=== PATIENT | female | born 1975 ===

== ENCOUNTER 2017-01-02 16:02 | Emergency (ER) | payer SELFPAY ==
[2017-01-02 16:12] VITALS: RESP 16; TEMP 98.1
--- NOTE | 2017-01-02 16:44 | C.PDOC ---
History Of Present Illness 41-year-old female, presents to the emergency department with complaints of dizziness, that started at 11:00 this morning. Dizziness is described as "room spinning" that is associated with a generalized headache, nausea and several episodes of non-bloody/non-bilious vomiting. Patient also notes discomfort when she pees. Denies chest pain, shortness of breath, abdominal pain, numbness/ weakness, visual changes, LOC, fevers, vaginal bleeding/vaginal discharge, or any other associated symptoms. Patient states she has sick contact (sister) at home with sore throat and body aches. No other complaints at this time. Time Seen by Provider: 01/02/17 16:30 Chief Complaint (Nursing): Dizziness/Lightheaded History Per: Patient History/Exam Limitations: no limitations Onset/Duration Of Symptoms: Hrs Current Symptoms Are (Timing): Still Present Associated Symptoms Preceding Syncopal Episode: Vertigo Worse With Change In Head Position Fall Associated With With Symptoms: No Past Medical History Reviewed: Historical Data, Nursing Documentation, Vital Signs Vital Signs: Last Vital Signs Temp 98.1 F 01/02/17 18:04 Pulse 76 01/02/17 18:04 Resp 16 01/02/17 18:04 BP 96/55 L 01/02/17 18:04 Pulse Ox 96 01/02/17 18:15 Family History: States: No Known Family Hx Review Of Systems Except As Marked, All Systems Reviewed And Found Negative. Gastrointestinal: Positive for: Nausea, Vomiting Genitourinary: Positive for: Dysuria Neurological: Positive for: Headache, Dizziness. Negative for: Weakness, Numbness Physical Exam - Physical Exam Appears: Non-toxic, No Acute Distress (Uncomfortable) Skin: Warm, Dry, No Rash Head: Atraumatic, Normacephalic, Other (dizziness worsens with movement.) Eye(s): bilateral: Normal Inspection, PERRL, EOMI, Other (No nystagmus) Oral Mucosa: Moist Neck: Normal ROM Cardiovascular: Rhythm Regular, No Murmur Respiratory: Normal Breath Sounds, No Accessory Muscle Use Gastrointestinal/Abdominal: Soft, No Tenderness Extremity: Normal ROM Neurological/Psych: Oriented x3, Normal Speech, Normal Cognition, Normal Cranial Nerves (II-XII intact), Normal Motor, Normal Sensation, Normal Reflexes , Other (No focal deficits.) ED Course And Treatment - Laboratory Results Result Diagrams: 01/02/17 16:51 01/02/17 16:51 ECG: Interpreted By Me, Viewed By Me (NSR 82 bpm, normal axis, no acute ST/T wave changes) ECG Interpretation: No Acute Changes O2 Sat by Pulse Oximetry: 96 (RA) Pulse Ox Interpretation: Normal - CT Scan/US CT - Head Other Rad Studies (CT/US): Read By Radiologist, Radiology Report Reviewed CT/US Interpretation: EXAM: CT Head Without Intravenous Contrast. CLINICAL HISTORY: 41 years old, female; Pain; Headache; Headache not specified; Additional info: R/O bleed. TECHNIQUE: Axial computed tomography images of the head/brain without intravenous contrast. This CT exam. was performed using one or more of the following dose reduction techniques: automated exposure. control, adjustment of the mA and/or kV according to patient size, and/or use of iterative. reconstruction technique. COMPARISON: No relevant prior studies available. FINDINGS: Brain: Unremarkable. No hemorrhage. No significant white matter disease. No edema. Normal. chaparro white matter interfaces are present. Ventricles: Unremarkable. No ventriculomegaly. Bones/ joints: Unremarkable. No acute fracture. Soft tissues: Unremarkable. Sinuses: Unremarkable as visualized. No acute sinusitis. Mastoid air cells: Unremarkable as visualized. No mastoid effusion. IMPRESSION: Normal head/ brain CT. Thank you for allowing us to participate in the care of your patient. Dictated and Authenticated by: Berhane Peña MD. 01/02/2017 5:18 PM Eastern Time ([place] & [place]) Progress Note: CT Head, EKG, Bloodwork, Urine and UHCG ordered and reviewed. Patient treated with PO Meclizine, IVFs and IV Zofran. Disposition Counseled Patient/Family Regarding: Studies Performed, Diagnosis, Need For Followup, Rx Given - Disposition Referrals: Rickie Knox MD [Staff Provider] - Magdaleno Adkins MD [Staff Provider] - Disposition: HOME/ ROUTINE Disposition Time: 18:25 Condition: STABLE Additional Instructions: SEGUIMIENTO CON COSTA DOCTOR / CLNICA EN 1-2 LOBO Y CON ESPECIALISTAS DENTRO DE 1 SEMANA UTILICE EL MECLIZINE LENO SE NECESITA PARA EL MAREO BEBER MUCHO LQUIDO DEVUELVA A LA COY DE EMERGENCIA SI LOS SINTOMAS VUELVEN / EMPEORARAN Prescriptions: Meclizine [Meclizine*] 25 mg PO Q6 #15 tab Instructions: Benign Paroxysmal Positional Vertigo (ED) Print Language: CHILEAN - POA Present On Arrival: None - Clinical Impression Clinical Impression: Peripheral vertigo, Headache, Nausea - Scribe Statement Erasmo Meeks All medical record entries made by the Scribe were at my direction and personally dictated by me. I have reviewed the chart and agree that the record accurately reflects my personal performance of the history, physical exam, medical decision making, and the department course for this patient. I have also personally directed, reviewed, and agree with the discharge instructions and disposition.
[2017-01-02] MEDS ORDERED: Sodium Chloride 0.9% 1,000 ML IV ONE (16:45)
[2017-01-02] MEDS ORDERED: Sodium Chloride 0.9% 1,000 ML ONE (16:52)
[2017-01-02 16:55] LABS: BASO % 0.3 % (0.0-2.0); EOS % 0.3 % (0.0-4.0); HEMATOCRIT 37.6 % (34.0-47.0); LYMPH # 2.6 K/uL (1.0-4.3); MEAN CELL VOLUME 87.4 fL (81.0-99.0); MEAN CORPUSCULAR HGB CONC 33.2 g/dL (33.0-37.0); MEAN PLATELET VOLUME 9.9 fL (7.2-11.7); MONO # 0.7 K/uL (0.0-0.8); MONO % 6.8 % (0.0-10.0); NRBC % 0.1 % (0.0-2.0); RED CELL DISTRIBUTION WIDTH 13.2 % (11.5-14.5); WHITE BLOOD COUNT 10.4 K/uL (4.8-10.8)
[2017-01-02 17:06] LABS: CHLORIDE 104 mmol/L (98-107); POTASSIUM 4.3 mmol/L (3.6-5.2); SODIUM 141 mmol/L (132-148)
[2017-01-02 17:08] LABS: ALKALINE PHOSPHATASE 103 U/L (38-126); AST/SGOT 29 U/L (14-36); BILIRUBIN,TOTAL 0.6 mg/dL (0.2-1.3); BLOOD UREA NITROGEN 11 mg/dL (7-17); CARBON DIOXIDE 26 mmol/L (22-30); GFR AFRICAN-AMERICAN > 60; TOTAL PROTEIN 8.5 g/dL (6.3-8.3)
[2017-01-02 17:09] LABS: ALT/SGPT 42 U/L (9-52); CALCIUM 9.4 mg/dl (8.6-10.4); GLUCOSE,RANDOM 93 mg/dL (65-105)
[2017-01-02 17:46] LABS: URINE BACTERIA RARE (<OCC); URINE BILIRUBIN NEGATIVE (NEGATIVE); URINE BLOOD NEGATIVE (NEGATIVE); URINE COLOR Straw (YELLOW); URINE GLUCOSE (UA) NORMAL (Normal); URINE KETONE TRACE mg/dL (NEGATIVE); URINE LEUKOCYTE ESTERASE NEG Leu/uL (Negative); URINE PROTEIN NEGATIVE (NEGATIVE); URINE UROBILINOGEN NORMAL mg/dL (0.2-1.0); WBC URINE 1 /hpf (0-5)
[2017-01-02 18:40] VITALS: BP 98/69; PULSE 81; O2SAT 98
--- NOTE | 2017-01-03 08:15 | CT ---
PROCEDURE: CT HEAD WITHOUT CONTRAST. HISTORY: R/O Bleed. Headache. COMPARISON: None available. TECHNIQUE: Axial computed tomography images were obtained through the head/brain without intravenous contrast. Radiation dose: Total exam DLP = 802 mGy-cm. This CT exam was performed using one or more of the following dose reduction techniques: Automated exposure control, adjustment of the mA and/or kV according to patient size, and/or use of iterative reconstruction technique. FINDINGS: HEMORRHAGE: No intracranial hemorrhage. BRAIN: No mass effect or edema. No atrophy or chronic microvascular ischemic changes. Bilateral basal ganglia calcifications. VENTRICLES: Unremarkable. No hydrocephalus. CALVARIUM: Unremarkable. PARANASAL SINUSES: Unremarkable as visualized. No significant inflammatory changes. MASTOID AIR CELLS: Unremarkable as visualized. No inflammatory changes. OTHER FINDINGS: None. IMPRESSION: No acute intracranial abnormality. If focal neurologic deficit persists, consider MRI. These findings were preliminarily reported at 5:18 p.m. on 01/02/[address] Berhane Peña from [facility].
--- NOTE | 2017-01-03 18:29 | CARD ---
APPROVED REPORT EKG Measurement Heart [id number] <Conclusion> Normal sinus rhythm Possible Left atrial enlargement Borderline ECG
== END 2017-01-02 18:45 | disposition home or self-care (01) ==
LOC: C.ER 16:02
DX: H81.399 Other peripheral vertigo, unspecified ear (principal); R51 Headache; R11.0 Nausea
CPT/HCPCS: 70450; 80053; 81001; 83690; 84703; 85025; 93005; 96374; 99285; J2405; J7040

== ENCOUNTER 2018-11-14 15:26 | Inpatient (IN) | payer MEDICAID ==
[2018-11-14] MEDS ORDERED: Lactated Ringer's 1,000 ML IV ONE ×2 (16:28)
[2018-11-14] MEDS ORDERED: cefOXitin IV 2 gm in Dextrose 2 GM/50 ML BAG IVPB ONE (16:28)
[2018-11-14] MEDS ORDERED: Sodium Citrate/Citric Acid 15 ml Sol PO ONE (16:28)
[2018-11-14] MEDS ORDERED: Lactated Ringer's 1,000 ML IV SCH (16:30)
[2018-11-14 16:49] LABS: BASO % 0.4 % (0.0-2.0); EOS % 0.6 % (0.0-4.0); HEMOGLOBIN 11.2 g/dL (11.0-16.0); LYMPH # 2.1 K/uL (1.0-4.3); LYMPH % 28.5 % (20.0-40.0); MEAN CELL VOLUME 85.8 fL (81.0-99.0); MEAN CORPUSCULAR HEMOGLOBIN 28.8 pg (27.0-31.0); MEAN CORPUSCULAR HGB CONC 33.5 g/dL (33.0-37.0); MEAN PLATELET VOLUME 10.6 fL (7.2-11.7); MONO # 0.5 K/uL (0.0-0.8); MONO % 7.3 % (0.0-10.0); NEUT # 4.7 K/uL (1.8-7.0); NEUT % 63.2 % (50.0-75.0); NRBC % 0.1 % (0.0-2.0); RBC 3.91 Mil/uL (3.80-5.20); RED CELL DISTRIBUTION WIDTH 16.6 % (11.5-14.5); WHITE BLOOD COUNT 7.5 K/uL (4.8-10.8)
[2018-11-14 16:56] LABS: SQUAMOUS EPITHIAL 4 /hpf (0-5); URINE BACTERIA FEW (<OCC); URINE BILIRUBIN NEGATIVE (NEGATIVE); URINE BLOOD 3+ (NEGATIVE); URINE CLARITY Hazy (Clear); URINE COLOR Yellow (YELLOW); URINE GLUCOSE (UA) NORMAL (Normal); URINE HYALINE CAST 0-2 /lpf (0-2); URINE LEUKOCYTE ESTERASE NEG Leu/uL (Negative); URINE PROTEIN NEGATIVE (NEGATIVE); URINE UROBILINOGEN NORMAL mg/dL (0.2-1.0)
[2018-11-14 17:18] LABS: ALB/GLOB RATIO 1.2 (1.0-2.1); ALT/SGPT 12 U/L (9-52); AST/SGOT 30 U/L (14-36); BLOOD UREA NITROGEN 9 mg/dL (7-17); CALCIUM 9.3 mg/dl (8.6-10.4); GFR NON-AFRICAN AMERICAN > 60
[2018-11-14] MEDS ORDERED: Oxytocin 20 units in LR 2,000 ML IV ONE (17:49)
[2018-11-14] MEDS ORDERED: Morphine 1 mg/ml preservative-free Inj(Duramorph) ONE (19:43)
[2018-11-14] MEDS ORDERED: EPINEPHrine 1 mg/ml (1:1000) Inj ONE (19:47)
[2018-11-14] MEDS ORDERED: Oxytocin 10 Units/ml Inj ONE (19:52)
[2018-11-14] MEDS ORDERED: ePHEDrine 50 mg/ml Inj ONE (20:30)
[2018-11-14] MEDS ORDERED: Phenylephrine 10 mg/ml Inj ONE (20:30)
--- NOTE | 2018-11-14 22:31 | PCM.SURG1 ---
Surgeon's Initial Post Op Note - Surgeon's Notes Surgeon: Katie Dietz MD Resistor Winder: Wally Hastings MD. 2nd Asst: Cynthia Jauregui, MS-3 Type of Anesthesia: Spinal Anesthesia Administered By: Andre Barragan DO Pre-Operative Diagnosis: 38 weeks 5 days, previous C/S, uterine contractions, vaginal spotting, Advanced maternal age, anemia; desires permanent sterilization Operative Findings: Live male infant, LOP, loose nuchal cord x 1, weight 7lb 5oz, 's 9/9. Cord pH (venous) 7.12, base excess -13.8. Normal uterus. Normal fallopian tubes and ovaries, bilaterally Post-Operative Diagnosis: Same Operation Performed: repeat LTCS. bilateral total salpingectomy Specimen/Specimens Removed: right and left fallopian tubes Estimated Blood Loss: EBL {In ML}: 600 (U.O. 400 mL; IVFs 2,500 mL LR; 40 units pitocin Hemabate 250 micrograms x 1) Blood Products Given: N/A Drains Used: No Drains Post-Op Condition: Good Date of Surgery/Procedure: 11/14/18 Time of Surgery/Procedure: 21:35
--- NOTE | 2018-11-14 23:06 | OBDS ---
DELIVERY PERSONNEL Delivery Doctor: Henna Dietz MD Equipment Maintenance Superintendent: Dee Finney RN Anesthesiologist: Piper Barragan MD Resident: Lisy Jauregui DO MATERNAL INFORMATION Delivery Anesthesia: Spinal Medications in Delivery: pitocin Estimated Blood Loss (ml): 600 Placenta Cultured: No Maternal Complications: None Provider Comments: Repeat LTCS with bialteral total salpingectomy under spinal anesthesia. Uncomplic ated delivery of live male , LOP, loose nuchal cord x 1. Cord pH 7.12 Bialteral salpingectomy perfomred with Ligasure without inident Hemostasis assured throughout Patient tolerated procedure well Weight 7lb 5oz 's 9/9 EBL 60 0mL U.O. 400 mL IVFs: 2,500 mL LR Pitocin 60 units toatl (40, then 20) Hemabate 250 micorgrams x 1 LABOR SUMMARY EDC: 11/23/2018 00:00 No. Babies in Womb: 1 Attempted: No Labor Anesthesia: None LABOR INFORMATION Reason for Induction: Not Applicable Onset of Labor: 11/14/2018 09:00 Oxytocin: N/A Group B Beta Strep: Negative Steroids Given: None Reason Steroids Not Administered: Not Applicable MEMBRANES Membranes Rupture Method: Artificial Rupture of Membranes: 11/14/2018 20:29 Length of Rupture (hrs): 0.02 Amniotic Fluid Color: Bloody Amniotic Fluid Amount: Moderate Amniotic Fluid Odor: Normal STAGES OF LABOR Stage 3 hrs: 0 Stage 3 min: 1 Total Time in Labor hrs: 11 Total Time in Labor min: 31 CSECTION DELIVERY Primary Indication: Uterine contractions Other Primary Indication: Vaginal bleeding Secondary Indication: Previous C/S x 1 CSection Urgency: Non Elective CSection Incidence: Repeat Labor: Labor Elective: N/A CSection Incision: Lower Uterine Transverse Other Sterilization Procedure: bilateral total salpingectomy Uterine Closure: Double-layer closure BABY A INFORMATION Delivery Date/Time: 11/14/2018 20:30 Method of Delivery: Born in Route : No : N/A Forceps: N/A Vacuum Extraction: N/A Shoulder Dystocia : No SHOULDER DYSTOCIA BABY A Delivery Date/Time: 11/14/2018 20:30 PRESENTATION/POSITION BABY A Presentation: Cephalic Cephalic Presentation: Vertex Vertex Position: Left Occipital Posterior Breech Presentation: N/A PLACENTA INFORMATION BABY A Placenta Delivery Time : 11/14/2018 20:31 Placenta Method of Delivery: Manual Removal Placenta Status: Delivered SCORES BABY A Heart Rate 1 min: >100 bpm Resp Effort 1 min: Good Cry Reflex Irritability 1 min: Cough or Sneeze or Pulls Away Muscle Tone 1 min: Active Motion Color 1 min: Body Vera, Extremities Blue Resuscitation Effort 1 min: Tactile Stimulation SCORE 1 MIN: 9 Heart Rate 5 min: >100 bpm Resp Effort 5 min: Good Cry Reflex Irritability 5 min: Cough or Sneeze or Pulls Away Muscle Tone 5 min: Active Motion Color 5 min: Body Vera, Extremities Blue Resuscitation Effort 5 min: N/A SCORE 5 MIN: 9 INFORMATION BABY A Gestational Age at Delivery: 38.5 Gestational Status: Term Infant Outcome : Liveborn Condition : Stable Sex: Male IDENTIFICATION/MEDS BABY A ID Band Number: [id number] ID Band Location: Left Leg; Left Arm Sensor Number: [id number] Sensor Location : Cord Clamp WEIGHT/LENGTH BABY A Infant Birthweight (gms): 3330 Infant Weight (lb): 7 Weight (oz): 5 Infant Length Inches: 20.00 Infant Length cms: 50.8 CORD INFORMATION BABY A No. Cord Vessels: 3 Nuchal Cord : Around Neck x1, Loose Cord Blood Taken: Yes Infant Suction: Mouth; Nose ASSESSMENT BABY A Complications: None Physical Findings at Delivery: Within Normal Limits Infant Respirations: Appears Normal Business Insight And Analytics Manager/ALS Called : Yes Care By: DR. MALONE Transferred To: [facility]
[2018-11-15] MEDS ORDERED: Oxycodone/Acetaminophen 5/325 mg Tab PO PRN (00:49)
--- NOTE | 2018-11-15 01:24 | OBHP ---
Datetime: 11/14/2018 16:02 IP Adm Impression: Term, intrauterine ; Intact Membranes IP Chief Complaint Other: Vaginal spotting IP Adm Impression Other: Prev C/S; AMA; Anemia' desires permanent sterilization IP Admit Plan: Admit to unit; Initiate Section protocol Admit Comment, IP Provider: TREVOR ID [id number] 43 y.o. , LMP 02/16/18, SHELLY 11/23/18, EGA 38w 5d, previous C/S scheduled for repeat C/S with permanent sterilizatrion 11/16/18, presents with c/o vaginal spotting at approximately 1500 hours afte r the entire day of contractions, onset 0900 hours, pain scale 8/10 every 20 minutes. (+) AFM; denies LOF. care: [facility]: AMA; previous C/S; anemia P OB: [place] in [facility], [facility], , female, 6lb. 2007, male, 7lb; arrest of dilatation at 9 cm. No complications P CLINICAL DOCUMENTATION MANAGER: 12 x monthly x 7. Denies STIs, abnormal Pap, myoma, ovarian cysts. PMH: denies PSH: C/S x 1 NKDA Meds: PNV, iron - both QD Soc Hx: denies tobacco, illicit drug or EtOH use. x 20 years. Homemaker. Fam Hx: Mother alive 55 y.o. - HTN. Father age 23 - leukemia. No other fam h/ol cancer P.E.: as above. WD, mildly obese in NAD. Awake, alert, oriented to time, person and place. Pleasan t and cooperative. Accompanied by her brother and her daughter Assesment: 43 y.o. P2, prev C/S x 1, uterine contractions with vaginal spotting for repeat C/S wit h permanent sterilization. Category 1 tracing. Patient last ate 1300 hours - apple. Consent obtained after discussion of R/C; and affirmation of permanent sterilization. Patient is clinicaly stable. Plan: 1) Admit 2) NPO 3) Admission labs 4) Continuous EFM 5) Abdominal prep and shave 6) [place] 7) Mefoxin 8) Notify peds 9) Notify anesthesia 10) dowel inspector to O.R. Pelvic Type - PN: Adequate Extremities - PN: Normal Abdomen - PN: Normal Back - PN: Normal Breast - PN: Not Done Lungs - PN: Normal Heart - PN: Normal Thyroid - PN: Not Done Neurologic - PN: Normal HEENT - PN: Normal General - PN: Normal FHR - Baseline A Provider: 145 Contraction Comments Provider: 3 Comments, ACOG Physical Exam: Abdomen: Obese. Gravid. Soft. Non tender in all quadrants. Fundal heig ht 39cm. Healed Pfannenstiel scar Perineum: no blood or fluid noted SSE: No active bleeding; no bright red blood, Small clot in cloud automation tester fornix All other systems reviewed and are negative IP Hx Assessment: The History has been Reviewed and is Current EGA AdmitDate IP: 38.5 IP Indication for Induction: Not Applicable IP Chief Complaint: Uterine contractions; Other NICHD Variability Prov Fetus A: Moderate 6-25bpm NICHD Accel Fetus A IP Provider: [id number] NICHD Decel Fetus A IP Provider: None Dilatation, Provider: 2 Effacement, Provider: 40 Station, Provider: -3 Genitourinary Exam: Normal DTRs - PN: Not Done
--- NOTE | 2018-11-15 06:12 | OP ---
PROCEDURE DATE: 11/14/2018 SURGEON: Katie Dietz MD RADAR ENGINEER: Wally Hastings MD SECOND EXPLOSIVE ORDNANCE DISPOSAL SPECIALIST: Cynthia Jauregui MS-3 ANESTHESIOLOGIST: Andre Barragan DO ANESTHESIA TYPE: Spinal. PREOPERATIVE DIAGNOSES: A 38 weeks and 5 days' gestation, previous Caesarean section, uterine contractions and vaginal spotting, advanced maternal age, anemia, desiring permanent sterilization. POSTOPERATIVE DIAGNOSES: A 38 weeks and 5 days' gestation, previous Caesarean section, uterine contractions and vaginal spotting, advanced maternal age, anemia, status post permanent sterilization. OPERATIONS PERFORMED: Repeat transverse lower uterine segment section and bilateral salpingectomy. OPERATIVE FINDINGS: Live male infant from the occipital posterior position. Loose nuchal cord x1. Weight 7 pounds 5 ounces. 's 9 and 9 in one and five minutes respectively. Cord pH (venous) 7.12 with a base excess of -13.8. Normal uterus and normal fallopian tubes and ovaries bilaterally. ESTIMATED BLOOD LOSS: 600 mL. URINE OUTPUT: 400 mL of clear urine. INTRAVENOUS FLUIDS INTAKE: The patient received a total of 2500 mL of lactated Ringer's; one liter containing 40 units of Pitocin and second liter with 20 units of Pitocin, and Hemabate 250 micrograms was administered x1. BLOOD PRODUCTS GIVEN: None. COMPLICATIONS: None. DESCRIPTION OF PROCEDURE: The patient was taken to the operating room after having obtained informed consent for the anticipated procedure. This included a discussion of the risks and potential complications including but not limited to infection requiring continued antibiotics, hemorrhage requiring blood transfusion, repair of any damage to internal organs, possible Caesarean hysterectomy. The patient reaffirmed her desire for permanent sterilization. This consent form had been signed 08/2018. The patient expressed a understanding and agreed with the permanent procedure, understanding that no possibility for conceiving would exist as procedure performed is the complete removal of both tubes. After signing all consents, they were dated, witnessed and placed in the chart. The patient received Mefoxin 2 grams by IV piggyback, and she was subsequently escorted to the operating room. Once in the operating room, she was placed on the operating room table in sitting position where spinal anesthesia was administered without incident. After this placement, she was immediately repositioned into supine manner with the left lateral tilt. heart rate was auscultated and was 155 beats per minute. The abdomen was prepped and she was subsequently draped in the usual sterile fashion. After assuring an adequate level of anesthesia, using a scalpel, an incision was made through the previous Pfannenstiel scar. The incision was carried down through the subcutaneous tissue using Bovie electrocautery. The fascia was identified. It was nicked in the midline. The incision was extended bilaterally also using Bovie electrocautery. The rectus muscles were dissected off the overlying fascia using the Bovie electrocautery. The rectus muscle was in midline, and the parietal peritoneum was entered by sharp dissection. The vesicouterine reflection was identified, and a bladder flap was created. A transverse incision was then made on the lower uterine segment. Amniotomy was performed and a moderate amount of clear amniotic fluid was obtained. Atraumatic delivery of a live infant with findings as above then ensued. Once on the operative field, the infant's mouth and nose were bulb suctioned as umbilical cord was doubly clamped and cut. The infant was handed off the operative field to the gasket supervisor in attendance. A segment of the umbilical cord was obtained for cord pH analysis. Results are as above. By manual extraction, the placenta was delivered. It was grossly intact with three vessels present in the cord. The uterus was exteriorized for closure. This was done in two layers using 0 Vicryl, the first layer with a running interlocking fashion and the second layer with a horizontal imbricating fashion. Additional sutures using 0 Monocryl were placed on the left most aspect of the incision to assure hemostasis. After assuring adequate hemostasis, attention was directed to the pelvic viscera. Normal findings as above. Using a [place] clamp and after having identified the fimbriated end on the right fallopian tube, complete resection was performed using the LigaSure apparatus. Hemostasis was assured. A similar procedure was performed on the left fallopian tube. Both fallopian tubes were submitted to Pathology for further confirmation. Copious irrigation was then performed of the posterior aspect of the uterus. Attention was then redirected to the uterine incision was noted to be hemostatic. The bladder flap was reapproximated using 2-0 chromic in a running fashion. The uterus was replaced into the abdominal cavity. The paracolic gutters were cleared of all debris. Hemostasis was once again assured at the resected sites of the mesosalpinx. FloSeal was then placed along the incision line. The parietal peritoneum was then reapproximated using 2-0 chromic in a running fashion. The rectus muscle was reapproximated in the midline also using 2-0 chromic in a running fashion. The fascia was reapproximated using 0 Vicryl in a running manner. The subcutaneous tissue was reapproximated using 0 plain gut in a running manner, and the skin was reapproximated using surgical clips. A pressure dressing was applied. The patient was repositioned in a frog-leg manner. Bimanual exploration was performed. The uterus was emptied of any additional blood and clots. It was noted to be contracted at the level of the umbilicus. The patient was then transferred back to [facility] in stable condition. had been transferred to [facility] also in stable condition. Dr. Wally Hastings was present throughout the entire procedure. His presence is necessary for the following: Adequate visualization of the operative field at all times, the safe and atraumatic delivery of the , and assuring adequate hemostasis throughout the procedure. Katie Dietz MD MTDD
[2018-11-15 07:31] LABS: MEAN CORPUSCULAR HEMOGLOBIN 29.6 pg (27.0-31.0); MEAN CORPUSCULAR HGB CONC 34.4 g/dL (33.0-37.0); MEAN PLATELET VOLUME 10.2 fL (7.2-11.7); RBC 2.88 Mil/uL (3.80-5.20); RED CELL DISTRIBUTION WIDTH 16.5 % (11.5-14.5); WHITE BLOOD COUNT 8.6 K/uL (4.8-10.8)
[2018-11-15 07:36] LABS: HEMOGLOBIN 8.5 g/dL (11.0-16.0)
[2018-11-15] MEDS ORDERED: Lactated Ringer's 1,000 ML IV ONE (09:00)
[2018-11-15] MEDS: Prenatal Multivit/Folic Acid/Iron Tab PO SCH (09:34)
[2018-11-15] MEDS: Simethicone 80 mg Chewtab PO SCH ×4 (09:34→21:39)
--- NOTE | 2018-11-15 16:53 | OBPPN ---
Datetime: 11/15/2018 10:48 PP Pain Prov: Within normal limits PP Nausea Prov: Denies PP Flatus Prov: No PP BM Prov: No PP Breasts Prov: Not Done PP Heart Prov: Normal PP Lungs Prov: Normal PP Abdomen/Uterus Prov: Normal PP Lochia Prov: Not Done PP Vulva/Perineum Prov: Not Done PP CVA Tenderness Prov: Normal PP Extremities Prov: Normal PP C/S Incision Prov: Normal PP Comments Phys Exam Prov: General: NAD,Comfortable Cardiac: RRR, no murmurs Lungs: CTABL, No Rales, Ronchi, Wheezes ABD: Soft, non-tender, non-distended, fundal height 2 finger breaths below the umbilicus LE: Bilateral trace pitting edema 2+ pulse PP Impression Prov: Normal progression PP Plan Prov: Continue present management PP Progress Note Prov: 43F s/p LTC C/S w/ BL TBL on 11/14 Patient seen and examined at bedside, No acute events reported overnight. Patient is doing well bu t complains dizziness and mild generalized abdominal pain (2/10). Pt is tolerating liquid diet and am bulates from the chair to the bed. Pt is not adequately hydrating, but agreed to drink water without ice. Pt was sitting up in the chair when I saw her. She is breast feeding for 10 minutes every 2 hour s. Denies flatus, bowel movement, or urination. Denies CP, SOB, N/V, Vaginal bleeding, or lochia. Vitals: Reviewed and stable H/H: Upon admission: 11.2/33.5 > Post operative 8.5/24.8 Bloodtype: A+ A/P: 43F s/p LTC C/S w/ BL TBL POD#1 Noted to have symptomatic blood loss anemia this morning Will continue current management Bolus 1L LR / Orthostatic vitals ; Will transfuse if no improvement of symptoms Continue analgesia w/ Percocet, Motrin, Tylenol prn Encourage , ambulation, hydration Continue w/ feosol + colace Patient was seen, examined, discussed w/ attending Dr. Bhupinder Bates DO PGY1 Pt seen and examined with Dr. Bates and medical students on rotation and agree with their findings and POC. IP PP Procedures: None Vital Signs Provider PP: Reviewed
[2018-11-16] MEDS: Prenatal Multivit/Folic Acid/Iron Tab PO SCH (09:41)
[2018-11-16] MEDS: Simethicone 80 mg Chewtab PO SCH ×4 (09:41→22:45)
[2018-11-16] MEDS: Oxycodone/Acetaminophen 5/325 mg Tab PO PRN ×2 (14:47→17:35)
[2018-11-16] MEDS: Magnesium Citrate Oral SOL (300 ml) PO SCH ×2 (15:05→21:30)
[2018-11-17] MEDS: Oxycodone/Acetaminophen 5/325 mg Tab PO PRN ×2 (00:30→07:33)
[2018-11-17 08:28] VITALS: BP 101/63; PULSE 78; RESP 18; TEMP 97.8
[2018-11-17] MEDS: Prenatal Multivit/Folic Acid/Iron Tab PO SCH (08:59)
[2018-11-17] MEDS: Simethicone 80 mg Chewtab PO SCH (09:00)
--- NOTE | 2018-11-17 09:45 | OBDCSUM ---
Datetime: 11/17/2018 07:52 Discharged to, Provider: Home Follow up at, Provider: [facility] Disch Instr Activity: Normal activity Disch Instr Diet: Regular Discharge Diet restrict Prov: none Discharge Instructions, Provider: Routine instructions given Discharge Diagnosis, Provider: Term Delivered Discharge Time: 11/17/2018 11:00 Follow up in weeks, Provider: saturday november 24, 2018 Disch Referrals: None Contraception discussed, Prov: No Disch Activity Restrictions: No exercising; No lifting; No sexual activity; Nothing in vagina - Inte rcourse, tampons, douche Discharge Comment, Provider: s/p LT CS w/ BTL on 11/14 seen and examined at bedside this mo rning prior to discharge; no acute events reported overnight. Patient reports she has been breast fee ding Q2H; Pain controlled w/ percocet / motrin - rated currently at 4/10. Patient is ambulating w/o c omplaint or difficulty. Had BM last night. No further complaints voiced by patient, hydrating well; d enies dizziness, fevers, chills, cp, sob, n/v/d/c. 24 Hour vitals reviewed - stable General: NAD, Comfortable Cardio: RRR, No Murmur Pulm: CTABL, No rales/ronchi/wheeze Abd: Soft, mildly tender, umbilicus 2 finger breadth below umbilicus; Incision site is clean/dry; no discharge, oozing, erythema appreciated LE: 1+ Pitting edema BL; Distal pulses 2+ BL Labs reviewed A/P: s/p LTC CS w/ BTL POD#3 Plan to discharge patient home today Discharge instructions, follow up instructions, medications reviewed w/ patient Encourage patient to ambulate, breast feed, hydrate Will DC home w/ Feosol QD, Colace BID, Percocet, Motrin, Vit Discharged home in stable and satisfactory condition. Patient was seen, examined, discussed w/ attending Dr. Bhupinder Bates DO PGY1 Pt seen and examined with Dr. Bates and Medical Students on rotation at this time and all of thei findings, assessment and POC agreed on. Discharge Diagnosis Prov Other: s/p LTC C/S w/ BTL
[2018-11-17 17:08] VITALS: O2SAT 97
== END 2018-11-17 12:50 | disposition home or self-care (01) | DRG 540 ==
LOC: C.EROB 15:26 → C.4D 16:00 → C.4M 11-15 00:10
PROVIDERS: ADMIT Obstetrics & Gynecology; ATTEND Obstetrics & Gynecology
PROC: 10D00Z1 Extraction of Products of Conception, Low, Open Approach (ICD-10-PCS; principal; 2018-11-14)
PROC: 0UT70ZZ Resection of Bilateral Fallopian Tubes, Open Approach (ICD-10-PCS; 2018-11-14)
DX: O99.02 Anemia complicating childbirth (principal); D64.9 Anemia, unspecified; O34.211 Maternal care for low transverse scar from previous cesarean delivery; Z37.0 Single live birth; O69.81X0 Labor and delivery complicated by cord around neck, without compression, not applicable or unspecified; Z3A.38 38 weeks gestation of pregnancy; Z30.2 Encounter for sterilization